=== PATIENT | male | born 1970 | race Two or more races ===

== ENCOUNTER 2023-12-29 07:19 | Outpatient (CLI) | payer OTHER | END 2023-12-29 07:20 | disposition home or self-care (01) | LOC: NUCLEAR 07:19 | PROVIDERS: ATTEND Physical Medicine & Rehabilitation | DX: M06.4 Inflammatory polyarthropathy (principal) ==

== ENCOUNTER 2024-01-05 08:14 | Outpatient (CLI) | payer OTHER | END 2024-01-05 08:47 | disposition home or self-care (01) | LOC: TOM 08:14 | PROVIDERS: ATTEND Physical Medicine & Rehabilitation | DX: R07.81 Pleurodynia (principal); J18.9 Pneumonia, unspecified organism; C34.90 Malignant neoplasm of unspecified part of unspecified bronchus or lung ==

== ENCOUNTER 2025-06-24 09:53 | Outpatient (CLI) | payer OTHER | END 2025-06-24 09:59 | disposition home or self-care (01) | LOC: RAD 09:53 | DX: M75.100 Unspecified rotator cuff tear or rupture of unspecified shoulder, not specified as traumatic (principal); R52 Pain, unspecified; M53.82 Other specified dorsopathies, cervical region; M70.61 Trochanteric bursitis, right hip ==